=== PATIENT | male | born 1950 | race Caucasian/White ===

== ENCOUNTER 2017-01-27 16:27 | Emergency (ER) | payer BC ==
[2017-01-27 16:52] VITALS: BP 167/94
[2017-01-27] MEDS ORDERED: Ibuprofen TAB* 600 MG PO ONE (17:00)
--- NOTE | 2017-01-27 17:01 | UC ---
UC General HPI - HPI Summary HPI Summary: 2 days of feeling "flu like" with body aches and fevers - History of Current Complaint Chief Complaint: UCGeneralIllness Stated Complaint: FLU SYMPTOMS RASH CHILLS Time Seen by Provider: 01/27/17 16:33 Hx Obtained From: Patient Onset/Duration: Gradual Onset, Lasting Days - 2, Still Present Timing: Constant Onset Severity: Moderate Current Severity: Moderate Associated Signs & Symptoms: Positive: Fever, Other - erythema behind right knee that is worsening began 3 days ago as a bug bite - Allergy/Home Medications Allergies/Adverse Reactions: Allergies Allergy/AdvReac Type Severity Reaction Status Date / Time Penicillins Allergy Severe Fever Verified 01/27/17 16:38 Home Medications: Home Medications Allopurinol TAB* [Zyloprim 100 MG TAB*] 1 tbsp PO DAILY 01/27/17 [History Confirmed 01/27/17] Hydrochlorothiazide TAB* [Hydrodiuril TAB*] 1 tab PO DAILY 01/27/17 [History Confirmed 01/27/17] Ibuprofen TAB* [Advil TAB*] 1 tab PO TID PRN 01/27/17 [History Confirmed ] Potassium Citrate (Alkalinizer [Potassium Citrate ER] 1 tab PO DAILY 01/27/17 [ History Confirmed 01/27/17] diPHENhydraMINE PO* [Benadryl PO 25 MG TAB*] 1 tab PO BID PRN 01/27/17 [History Confirmed 01/27/17] PMH/Surg Hx/FS Hx/Imm Hx Previously Healthy: No Cardiovascular History: Hypertension GI/ History: Kidney Stones Psychological History: Other Other Psychological History: insomnia - Surgical History Surgical History: Yes Surgery Procedure, Year, and Place: hernia; kidney stones. JUN 2016 PARATHYROIDECTOMY - Family History Known Family History: Positive: None - Social History Occupation: Employed Full-time Lives: With Family Alcohol Use: Occasionally Substance Use Type: None Smoking Status (MU): Never Smoked Tobacco - Immunization History Most Recent Influenza Vaccination: fall 2014 Review of Systems Constitutional: Fever Skin: Negative Eyes: Negative ENT: Negative Respiratory: Negative Cardiovascular: Negative Gastrointestinal: Negative Genitourinary: Negative Motor: Negative Neurovascular: Negative Musculoskeletal: Other: - hot tender red area behind right knee that started as a bug bite, no calf tenderness Neurological: Negative Psychological: Negative All Other Systems Reviewed And Are Negative: Yes Physical Exam Triage Information Reviewed: Yes Appearance: Well-Appearing, No Pain Distress, Well-Nourished Vital Signs: Initial Vital Signs Temp 103.1 F 01/27/17 16:45 Pulse 94 01/27/17 16:45 Resp 18 01/27/17 16:45 BP 167/94 01/27/17 16:45 Pulse Ox 97 01/27/17 16:45 Vital Signs Reviewed: Yes Eye Exam: Normal Eyes: Positive: Conjunctiva Clear ENT Exam: Normal ENT: Positive: Normal ENT inspection, Hearing grossly normal, Pharynx normal, TMs normal. Negative: Nasal congestion, Nasal drainage, Trismus, Muffled/ hoarse voice Dental Exam: Normal Neck exam: Normal Neck: Positive: Supple, Nontender Respiratory Exam: Normal Respiratory: Positive: Chest non-tender, Lungs clear, Normal breath sounds, No respiratory distress, No accessory muscle use, Respiratory distress Cardiovascular Exam: Normal Cardiovascular: Positive: RRR, No Murmur, Pulses Normal, Brisk Capillary Refill Abdominal Exam: Normal Abdomen Description: Positive: Nontender, No Organomegaly, Soft Bowel Sounds: Positive: Present Musculoskeletal Exam: Normal Musculoskeletal: Positive: Strength Intact, ROM Intact, No Edema Neurological Exam: Normal Neurological: Positive: Alert, Muscle Tone Normal Psychological Exam: Normal Psychological: Positive: Normal Response To Family, Age Appropriate Behavior Skin Exam: Normal Skin: Positive: Other - hot red 15cm x3 cm behind right knee no streaking Diagnostics - Laboratory Diagnostic Studies Completed/Ordered: ua-+blood (per patient this is his usual) protien Re-Evaluation - Re-Evaluation First Eval Change: Improved - temp down to 100.9 feeling better Course/Dx - Course Course Of Treatment: warm compress for back of knee, antibiodic follow with cp in 2-3 days to ed should sx worsen or fail to improve - Differential Dx - Multi-Symptom Differential Diagnoses: Other - cellulitis, uti, influenza, viral illness Provider Diagnoses: cellulitis posterior right knee, highblood pressure in poor control Discharge - Discharge Plan Condition: Stable Disposition: HOME Prescriptions: DOXYcycline CAP(*) [DOXYcycline 100MG CAP(*)] 100 mg PO BID #20 cap Patient Education Materials: Ibuprofen (By mouth), Cellulitis (ED), Heat Pack Application (ED), Shoulder Pain (ED) Referrals: Jeanine Bruner MD [Primary Care Provider] - 2 Days Eber Gomez MD [Medical Doctor] - 5 Days
--- NOTE | 2017-01-30 08:46 | UC ---
Progress - Progress Note Progress Note: please inform pt of test neg for lyme. this initial test does not rule out lyme. please follow up with pcp for recheck in 7-14 days Re-Evaluation - Re-Evaluation First Eval Change: Improved - temp down to 100.9 feeling better
== END 2017-01-27 18:11 | disposition home or self-care (01) ==
LOC: UCEAST 16:27
DX: L03.115 Cellulitis of right lower limb (principal); R50.9 Fever, unspecified; I10 Essential (primary) hypertension; Z88.0 Allergy status to penicillin; Z87.442 Personal history of urinary calculi
CPT/HCPCS: 81003; 86618; 87502; 99212; A9270-GY; G0463

== ENCOUNTER 2019-03-21 16:47 | Emergency (ER) | payer BC, MEDICARE ==
[2019-03-21 17:19] VITALS: BP 148/80
--- NOTE | 2019-03-21 18:23 | UC ---
Respiratory Complaint HPI - HPI Summary HPI Summary: PATIENT COMPLAINS OF SEVERAL WEEKS OF SINUS PRESSURE, COUGH AND FATIGUE. WENT TO [facility] ONE WEEK AGO AND PRESCRIBED 7 DAYS OF DOXYCYCLINE. HE WILL TAKE HIS LAST DOSE TONIGHT. STATES THAT WHILE HE IS IMPROVING HE FINDS THE COUGH EXHAUSTING. NYQUIL HELPS HIM SLEEP THROUGH THE NIGHT. ALSO STATES HE IS OUT OF HIS HCTZ. CALLED HIS PCP AND IS WAITING FOR CALL BACK TO SCHEDULE AN APPOINTMENT. - History of Current Complaint Chief Complaint: UCGeneralIllness Stated Complaint: COUGH Time Seen by Provider: 03/21/19 17:11 Hx Obtained From: Patient Onset/Duration: Gradual Onset, Lasting Weeks, Still Present Timing: Constant Severity Initially: Moderate Severity Currently: Mild Pain Intensity: 2 Pain Scale Used: 0-10 Numeric Character: Cough: Nonproductive Aggravating Factors: Nothing Associated Signs And Symptoms: Positive: URI. Negative: Dyspnea, Fever, Chills , Wheezing - Allergies/Home Medications Allergies/Adverse Reactions: Allergies Allergy/AdvReac Type Severity Reaction Status Date / Time Penicillins Allergy Severe Fever Verified 03/21/19 17:20 PMH/Surg Hx/FS Hx/Imm Hx Endocrine History: Dyslipidemia Cardiovascular History: Hypertension GI/ History: Kidney Stones - Surgical History Surgical History: Yes Surgery Procedure, Year, and Place: hernia; kidney stones. JUN 2016 PARATHYROIDECTOMY - Family History Known Family History: Positive: None - Social History Alcohol Use: Rare Substance Use Type: None Smoking Status (MU): Never Smoked Tobacco - Immunization History Most Recent Influenza Vaccination: fall 2014 Review of Systems All Other Systems Reviewed And Are Negative: Yes Constitutional: Positive: Fatigue ENT: Positive: Negative Respiratory: Positive: Cough Cardiovascular: Positive: Negative Gastrointestinal: Positive: Negative Musculoskeletal: Positive: Negative Neurological: Positive: Negative Physical Exam Triage Information Reviewed: Yes Appearance: Well-Appearing, No Pain Distress, Well-Nourished Vital Signs: Initial Vital Signs Temp 97.8 F 03/21/19 17:09 Pulse 80 03/21/19 17:09 Resp 16 03/21/19 17:09 BP 148/80 03/21/19 17:09 Pulse Ox 97 03/21/19 17:09 Vital Signs Reviewed: Yes Eyes: Positive: Conjunctiva Clear ENT: Positive: Hearing grossly normal, Pharynx normal, TMs normal Neck: Positive: Supple, Nontender, No Lymphadenopathy Respiratory Exam: Normal Cardiovascular Exam: Normal Abdomen Description: Positive: Soft Musculoskeletal: Positive: No Edema Neurological: Positive: Alert Psychological: Positive: Normal Response To Family Skin: Negative: Rashes Respiratory Course/Dx - Course Course Of Treatment: PATIENT ADMITS HE IS IMPROVING ALBEIT SLOWLY. HE IS SIMPLY TIRED OF THE PERSISTENT COUGH. ADVISED TO TAKE HIS LAST DOSE OF DOXY TONIGHT PRESCRIBED. WILL TRY A SHORT BURST OF PREDNISONE TO HELP WITH AIRWAY INFLAMMATION. IF HE IS NOT NOTICING IMPROVEMENT WITH THIS MEDICATION HE WILL CALL ME HERE IN 2 DAYS. HCTZ REFILLED. PATIENT STATES HE WILL FOLLOW UP WITH HIS PCP. - Differential Dx/Diagnosis Provider Diagnosis: Acute bronchitis, Hypertension Discharge ED - Sign-Out/Discharge Documenting (check all that apply): Patient Departure All imaging exams completed and their final reports reviewed: No Studies - Discharge Plan Condition: Stable Disposition: HOME Prescriptions: Hydrochlorothiazide TAB* [Hydrodiuril TAB*] 25 mg PO DAILY #30 tab predniSONE TAB* [Deltasone TAB*] 50 mg PO DAILY #5 tab Patient Education Materials: Acute Bronchitis (ED) Referrals: Jeanine Bruner MD [Primary Care Provider] - 2 Weeks Additional Instructions: GIVEN THAT YOUR SYMPTOMS ARE SLOWLY IMPROVING THIS IS REASSURING AND SUGGESTIVE OF A VIRAL INFECTION. TAKE YOUR LAST DOSE OF DOXYCYCLINE TONIGHT PRESCRIBED. START PREDNISONE ONCE DAILY FOR THE NEXT 5 DAYS TO SEE IF THIS HELPS WITH YOUR COUGH AND AIRWAY INFLAMMATION. REST, HYDRATE, OTC MEDS NEEDED. CALL ME HERE ON TUESDAY AFTERNOON AFTER 2:30PM IF YOUR SYMPTOMS ARE NOT IMPROVED AT ALL WITH THE PREDNISONE. FOLLOW-UP WITH YOUR PCP MARIO FOR A BP CHECK AND TO RENEW YOUR MEDICATION. - Billing Disposition and Condition Condition: STABLE Disposition: Home
== END 2019-03-21 18:12 | disposition home or self-care (01) ==
LOC: UCEAST 16:47
DX: J20.9 Acute bronchitis, unspecified (principal); I10 Essential (primary) hypertension; Z80.0 Family history of malignant neoplasm of digestive organs
CPT/HCPCS: 99212; G0463